=== PATIENT | female | born 1990 | race Caucasian/White ===

== ENCOUNTER 2023-12-09 12:47 | Emergency (ER) | payer OTHER ==
[2023-12-09 12:51] VITALS: BP 117/69; PULSE 93; RESP 16; TEMP 98.1
[2023-12-09] MEDS: ACETAMINOPHEN 325 MG TABLET (FP) PO ONE ×2 (13:09→18:10)
[2023-12-09] MEDS ORDERED: morphine SULFATE 4 MG/ML VIAL ONE ×2 (14:18→16:12)
[2023-12-09] MEDS: morphine CARPU-JECT 8 MG/1 ML DISP.SYRIN IVPUSH ONE ×2 (14:24→16:15)
[2023-12-09] MEDS ORDERED: ACETAMINOPHEN 325 MG TABLET (FP) ONE (18:04)
[2023-12-09] MEDS: ONDANSETRON *ODT* 4 MG TABLET SL ONE (18:28)
== END 2023-12-09 18:28 | disposition home or self-care (01) ==
LOC: FER 12:47
PROC: 3E033NZ Introduction of Analgesics, Hypnotics, Sedatives into Peripheral Vein, Percutaneous Approach (ICD-10-PCS; principal; 2023-12-09)
PROC: 3E033NZ Introduction of Analgesics, Hypnotics, Sedatives into Peripheral Vein, Percutaneous Approach (ICD-10-PCS; 2023-12-09)
DX: S42.009A Fracture of unspecified part of unspecified clavicle, initial encounter for closed fracture (principal); M25.511 Pain in right shoulder; V18.0XXA Pedal cycle driver injured in noncollision transport accident in nontraffic accident, initial encounter
CPT/HCPCS: 73000-TC-RT-FY; 73030-TC-RT-FY; 73502-TC-RT-FY; 99284-25; Q0162